=== PATIENT | female | born 1970 | race Caucasian/White ===

== ENCOUNTER 2016-08-27 21:33 | Inpatient (IN) | payer SELFPAY ==
[~2016-08-27] VITALS: Ht 154.9 cm; Wt 72.3 kg
[2016-08-27] MEDS ORDERED: SODIUM CHLORIDE 0.9% 1,000ML IVBOLUS ONE (22:30)
[2016-08-27 22:53] LABS: ASPARTATE AMINO TRANSFERASE 15 U/L (15-37); BLOOD UREA NITROGEN 23 mg/dL (7-18)
[2016-08-27 23:24] LABS: PH, VENOUS 7.345 pH (7.320-7.420)
[2016-08-28] MEDS ORDERED: INSULIN REGULAR 100 UNITS/ML, 3ML VIAL IVPush ONE (00:30)
[2016-08-28] MEDS ORDERED: GUAIFENESIN/DM 200-20MG, 10ML UDC PO PRN (02:00)
[2016-08-28] MEDS: SODIUM CHLORIDE 0.9% 1,000 ML IV SCH ×2 (02:00→14:21)
[2016-08-28] MEDS ORDERED: ONDANSETRON 2MG/ML, 2ML IVPush PRN (02:00)
[2016-08-28] MEDS ORDERED: HYDROcodone/APAP 5/325 TABLET PO PRN (02:00)
[2016-08-28 02:57] VITALS: BP 136/81
[2016-08-28] MEDS: INSULIN ASPART 100 UNITS/ML, PEN SQ-INSULIN SCH ×5 (03:23→19:44)
[2016-08-28 06:40] VITALS: BP 125/77
[2016-08-28] MEDS: ENOXAPARIN 40 MG/0.4 ML SQ SCH (07:56)
[2016-08-28] MEDS: FAMOTIDINE 20 MG TABLET PO SCH ×2 (07:57→19:44)
[2016-08-28] MEDS: LISINOPRIL 20 MG TABLET PO SCH (07:57)
[2016-08-28 09:17] LABS: BLOOD UREA NITROGEN 13 mg/dL (7-18)
[2016-08-28] MEDS: metFORMIN 500 MG TABLET PO SCH (11:33)
[2016-08-28 13:14] VITALS: BP 105/64
[2016-08-28 18:25] VITALS: BP 122/79
[2016-08-29] MEDS ORDERED: ARTIFICIAL TEARS OPHTH SOLN 15ML EACHEYE PRN (01:00)
[2016-08-29 01:50] VITALS: BP 113/70
[2016-08-29 05:39] LABS: BLOOD UREA NITROGEN 13 mg/dL (7-18)
[2016-08-29] MEDS: SODIUM CHLORIDE 0.9% 1,000 ML IV SCH (06:00)
[2016-08-29 07:35] VITALS: BP 111/70
[2016-08-29] MEDS: INSULIN ASPART 100 UNITS/ML, PEN SQ-INSULIN SCH (08:00)
[2016-08-29] MEDS: metFORMIN 500 MG TABLET PO SCH (08:01)
[2016-08-29] MEDS: FAMOTIDINE 20 MG TABLET PO SCH (08:02)
[2016-08-29] MEDS: LISINOPRIL 20 MG TABLET PO SCH (08:02)
[2016-08-29] MEDS: ENOXAPARIN 40 MG/0.4 ML SQ SCH (08:02)
[2016-08-29] MEDS ORDERED: INSULIN ASPART 100 UNITS/ML, PEN SQ-INSULIN SCH (11:00)
[2016-08-29] MEDS ORDERED: LISI-170 PO (11:02)
[2016-08-29] MEDS ORDERED: METF500T PO (11:02)
[2016-08-29] MEDS ORDERED: GLIP5TAB10 PO (11:02)
[2016-08-29] MEDS ORDERED: INSU100I18 SQ-INSULIN (11:09)
[2016-08-29] MEDS ORDERED: PNEUMOCOCCAL 23 VACCINE IM-VACC ONE (11:30)
[2016-08-29] MEDS ORDERED: metFORMIN 500 MG TABLET PO SCH (17:00)
== END 2016-08-29 12:42 | disposition home or self-care (01) | DRG 305 ==
LOC: ED 22:55 → EDIP 08-28 01:50 → 3NE 08-28 02:07
PROVIDERS: ADMIT Internal Medicine; ATTEND Internal Medicine
DX: I16.0 Hypertensive urgency (principal); E11.65 Type 2 diabetes mellitus with hyperglycemia; R25.2 Cramp and spasm; I10 Essential (primary) hypertension; Z91.14 Patient's other noncompliance with medication regimen; Z23 Encounter for immunization; Z82.49 Family history of ischemic heart disease and other diseases of the circulatory system; Z83.3 Family history of diabetes mellitus
CPT/HCPCS: 36415; 71010; 80048; 80053; 80061; 81001; 82010; 82803; 82962; 83036; 83735; 83930; 84100; 84443; 85025; 90732; 93005; 96361; 96374; J1815; J7030